=== PATIENT | male | born 1965 | race Caucasian/White ===

== ENCOUNTER 2017-09-26 11:15 | Day surgery (SDC) | payer OTHER ==
[~2017-09-26] VITALS: Ht 172.7 cm; Wt 82.1 kg
[~2017-09-26 11:15] MED LIST: ALPR2TAB PO; CARI350T PO; LORA-186 PO
[2017-09-26 11:43] VITALS: Ht 172.7 cm; Wt 82.1 kg
[2017-09-26] MEDS ORDERED: IBUP200C11 PO (11:48)
[2017-09-26 12:02] VITALS: BP 122/70; PULSE 74; RESP 16
[2017-09-26] MEDS ORDERED: LIDOCAINE 4% SOLUTION 50 ML BTL ONE (13:02)
[2017-09-26] MEDS ORDERED: LIDOCAINE 100 MG SYRINGE ONE (13:02)
[2017-09-26] MEDS ORDERED: FENTAnyl 50 MCG/ML VIAL ONE (13:21)
[2017-09-26] MEDS ORDERED: MIDAZOLAM 1 MG/ML 2 ML INJ ONE ×2 (13:21)
[2017-09-26 13:40] VITALS: BP 119/80; RESP 20
--- NOTE | 2017-09-26 13:59 | OPPN ---
Date/Time of Note Date/Time of Note DATE: 09/26/17 TIME: 13:56 Operative Report Preoperative Diagnosis Noncardiac chest pain Dysphagia Acid reflux symptoms Postoperative Diagnosis Esophagitis at 35 cm level 4 cm hiatal hernia Normal stomach normal duodenum Operation/Procedure Performed EGD with biopsy of distal esophagus and stomach Surgeon see signature line child life assistant None Anesthesia: moderate sedation (Versed 4 mg fentanyl 100 mcg posterior pharynx anesthetized with 4% Xylocaine total duration of moderate sedation 15 minutes) Estimated blood loss: none Transfusion Required none Specimen random gastric biopsy Distal esophagitis biopsy 35 cm Grafts/Implants none Complications none MARTHA MARKHAM MD Sep 26, 2017 13:59
--- NOTE | 2017-09-27 08:18 | GILP ---
DATE OF PROCEDURE: PREOPERATIVE DIAGNOSES: 1. Noncardiac chest pain. 2. Reflux symptoms. 3. Dysphagia. PROCEDURE DONE: Esophagogastroduodenoscopy and biopsy of the GE junction at 35 cm and random biopsy of the stomach. POSTOPERATIVE DIAGNOSES: 1. A 4 cm hiatus hernia. 2. Mild esophagitis grade II at 35 cm. DESCRIPTION OF PROCEDURE: The patient was put in left lateral decubitus after obtaining informed co nsent, was sedated with 4 mg of Versed and 100 mcg of fentanyl. Posterior pharynx anesthetized with 4% Xylocaine. Very carefully I advanced Olympus video upper endoscope into the esophagus, stomach and duodenum up to second part. Examination of the duodenum is normal. Duodenal bulb and first and second part normal. The stomach , including retroflexion, demonstrated only a hiatus hernia, but stomach, fundus, body and antrum no rmal, but random biopsy done to rule out H. pylori. Then GE junction at 35 cm where about 4 cm hiatus hernia was noted. Mild esophagitis grade II was n oted. This was photographed and biopsies were done. Then the scope was withdrawn. The patient had no complication. PLAN: Will be to wait for biopsy report. Continue PPI and ranitidine as before and he will follow up in my office in the next 2 to 3 weeks. Dictated By: MARTHA VILLASEÑOR Conf#: [id number] DID#: [id number] CC: Gurjit Arevalo;*End*
== END 2017-09-26 20:20 | disposition home or self-care (01) ==
LOC: GIL 11:15
PROVIDERS: ATTEND Internal Medicine
DX: K21.0 Gastro-esophageal reflux disease with esophagitis (principal); K44.9 Diaphragmatic hernia without obstruction or gangrene; E78.5 Hyperlipidemia, unspecified
CPT/HCPCS: 43239; 88305; 88312; 88313; J2001; J2250; J3010; Z7610

== ENCOUNTER 2017-11-14 12:27 | Day surgery (SDC) | END 2017-11-14 15:15 | disposition home or self-care (01) ==

== ENCOUNTER 2018-11-17 08:57 | Emergency (ER) | payer OTHER ==
[~2018-11-17] VITALS: Wt 81.4 kg
[~2018-11-17 08:57] MED LIST changes: -CARI350T PO; -LORA-186 PO; +OMEP20CA16 PO
[2018-11-17] MEDS ORDERED: SOD CHLORIDE 0.9% 1,000 ML IV STA (10:24)
[2018-11-17] MEDS ORDERED: FAMOTIDINE 20 MG TAB PO STA (10:24)
[2018-11-17] MEDS ORDERED: BELLADONNA/PHENOBARBITAL TAB PO STA (10:24)
[2018-11-17] MEDS ORDERED: LIDOCAINE/MYLANTA 40 ML BTL PO STA (10:24)
[2018-11-17] MEDS ORDERED: PANTOPRAZOLE 40 MG INJ IV ONE (10:30)
--- NOTE | 2018-11-17 10:34 | ERD ---
ER Documentation Chief Complaint Chief Complaint ABD PAIN, NAUSEA, VOMITING, ONSET 1 WEEK HPI 52-year-old man with a history of hiatal hernia using famotidine and proton pump inhibitor therapy for the last year presents with nausea, belching, indigestion, intermittent regurgitation, and epigastric discomfort times 1 week. He has a burning sensation in his throat and in the epigastrium, he denies blood per rectum or melena, no vomiting, no weight loss, no headache or blurry vision. ROS All systems reviewed and are negative except as per history of present illness. Medications Home Meds Active Scripts Esomeprazole Mag Trihydrate (Nexium) 20 Mg Capsule., 20 MG PO DAILY, #30 CAP Prov:ANAND POOLE MD 11/17/18 Reported Medications Omeprazole* (Omeprazole*) 20 Mg Capsule.dr, 20 MG PO DAILY, #30 CAP 11/14/17 Alprazolam* (Xanax*) 2 Mg Tablet, 2 MG PO DAILY, TAB 11/09/14 Allergies Allergies: Coded Allergies: No Known Allergy (Unverified , 08/05/14) PMhx/Soc Hiatal hernia, anxiety, severe erosive esophagitis and GERD diagnosed on upper endoscopy in late 2017 History of Surgery: Yes (BACK SX) Anesthesia Reaction: No Hx Neurological Disorder: No Hx Respiratory Disorders: No Hx Cardiac Disorders: No Hx Psychiatric Problems: Yes (ANXIETY) Hx Miscellaneous Medical Probl: Yes (CHRONIC LOWER BACK PAIN) Hx Alcohol Use: No Hx Substance Use: No Hx Tobacco Use: No Smoking Status: Never smoker FmHx Family History: No diabetes Physical Exam Vitals Vital Signs Date Temp Pulse Resp B/P (MAP) Pulse Ox O2 O2 Flow FiO2 Time Delivery Rate 11/17/18 98.2 70 17 111/80 98 Room Air 15:05 (90) 11/17/18 98.2 68 17 117/86 98 Room Air 12:30 (96) 11/17/18 81.4 64 17 132/83 97 09:05 (99) Physical Exam GENERAL: Well-developed, well-nourished, well-hydrated, anxious, afebrile HEENT: Moist mucous membranes, pink conjunctiva, no cervical spine tenderness or step-off deformities, no goiter, no jaundice or icterus, extraocular movements intact without pain. No submandibular induration, and no pharyngeal erythema NEURO: Alert and oriented 3, cranial nerves II through XII intact bilaterally, pupils equal round reactive to light, no focal deficits or facial asymmetry, sensation intact distally Strength 5/5 in upper and lower extremities bilaterally CARDIAC: Regular rate and rhythm, no murmurs rubs or gallops LUNGS: Clear bilaterally no wheezing crackles or stridor ABDOMEN: Soft nontender, no guarding, no rigidity, no rebound, no psoas sign no obturator sign. Normoactive bowel sounds SKIN: Warm and dry to touch, no abrasions, contusions, or hematomas, no lacerations, no ecchymosis, no target lesions, and without ulcers EXTREMITIES: No clubbing cyanosis or edema, calves are bilaterally symmetrical, no Homans sign, no popliteal cord sign. Distal pulses equal and bilateral PSYCH: Anxious appearing Result Diagram: 11/17/18 1038 11/17/18 1038 Results 24 hrs Laboratory Tests Test 11/17/18 10:38 White Blood Count 7.8 10^3/ul Red Blood Count 4.47 10^6/ul Hemoglobin 14.0 g/dl Hematocrit 39.9 % Mean Corpuscular Volume 89.3 fl Mean Corpuscular Hemoglobin 31.3 pg Mean Corpuscular Hemoglobin Concent 35.1 g/dl Red Cell Distribution Width 11.8 % Platelet Count 193 10^3/UL Mean Platelet Volume 9.4 fl Immature Granulocytes % 0.300 % Neutrophils % 60.5 % Lymphocytes % 29.8 % Monocytes % 6.2 % Eosinophils % 2.8 % Basophils % 0.4 % Nucleated Red Blood Cells % 0.0 /100WBC Immature Granulocytes # 0.020 10^3/ul Neutrophils # 4.7 10^3/ul Lymphocytes # 2.3 10^3/ul Monocytes # 0.5 10^3/ul Eosinophils # 0.2 10^3/ul Basophils # 0.0 10^3/ul Nucleated Red Blood Cells # 0.0 10^3/ul Prothrombin Time 12.0 Sec Prothrombin Time Ratio 0.9 INR International Normalized Ratio 0.88 Activated Partial Thromboplast Time 32.5 Sec Sodium Level 143 mmol/L Potassium Level 4.6 mmol/L Chloride Level 101 mmol/L Carbon Dioxide Level 29 mmol/L Anion Gap 13 Blood Urea Nitrogen 10 mg/dl Creatinine 0.95 mg/dl Est Glomerular Filtrat Rate mL/min > 60 mL/min Glucose Level 99 mg/dl Calcium Level 9.6 mg/dl Total Bilirubin 0.3 mg/dl Direct Bilirubin 0.00 mg/dl Indirect Bilirubin 0.3 mg/dl Aspartate Amino Transf (AST/SGOT) 50 IU/L Alanine Aminotransferase (ALT/SGPT) 52 IU/L Alkaline Phosphatase 60 IU/L Troponin I < 0.012 ng/ml Total Protein 7.9 g/dl Albumin 4.6 g/dl Globulin 3.30 g/dl Albumin/Globulin Ratio 1.39 Lipase 37 U/L Current Medications Medications Dose Sig/Radha Start Time Status Last (Trade) Ordered Route PRN Stop Time Admin Dose Reason Admin Sodium 1,000 ml @ Q1H STAT 11/17/18 DC 11/17/18 Chloride 1,000 mls/hr IV 10:24 10:54 11/17/18 11:23 Famotidine 20 mg ONCE STAT 11/17/18 DC 11/17/18 (Pepcid) PO 10:24 10:53 11/17/18 10:26 40 ml ONCE STAT 11/17/18 DC 11/17/18 Miscellaneous PO 10:24 10:53 Medication 11/17/18 10:26 (Gi Cocktail (2)) Belladonna/ 2 tab ONCE STAT 11/17/18 DC 11/17/18 Phenobarbital PO 10:24 10:53 () 11/17/18 10:26 40 mg ONCE ONCE 11/17/18 DC 11/17/18 Pantoprazole IV 10:30 10:53 (Protonix 11/17/18 10:31 Iv) Diatrizoate 120 ml ONCE ONCE 11/17/18 DC 11/17/18 Meglum/ PO 11:00 12:18 Diatrizoate 11/17/18 11:01 Sod (Gastrografin 66-10 Solution) Lorazepam 0.5 mg ONCE ONCE 11/17/18 DC 11/17/18 (Ativan) PO 13:30 13:36 11/17/18 13:31 Barium 450 ml STK-MED 11/17/18 DC Sulfate ONCE PO 13:13 (Readi-Cat 2 11/17/18 13:14 ( [employer] )) Procedures/MDM IV line was established patient was placed on monitoring coordinator rhythm strip revealed a sinus rhythm at about 70 bpm with upright P and T waves. Patient was afebrile EKG performed, read by me revealed a normal sinus rhythm at 65 bpm, normal axis, narrow QRS complex, no concerning ST elevations or depressions noted. One AP view of the chest performed, read by me reveals no acute infiltrates, normal mediastinum, sharp costophrenic and cardiac borders, no air under the diaphragm. Otherwise unremarkable chest x-ray. I administered 1 L normal saline IV, Zofran 4 mg IV, GI cocktail 40 cc p.o., Pro tonix 40 mg IV I spoke to the patient's GI physician Dr. Rios who recommended follow-up with surgeon as scheduled, this physician recently performed upper endoscopy on the patient and he has no further intervention to provide. He agreed to follow- up with the patient as an outpatient I spoke to the patient's surgeon Dr. Ng who recommended CT of the chest, abdomen, pelvis with oral contrast and if it is unremarkable to follow-up in his office as scheduled I ordered CT scan of the chest, abdomen and pelvis with oral contrast. Results were unremarkable please refer to radiologist dictation for full report. CBC and electrolytes are normal, liver function tests were normal, troponin was negative Patient's vital signs are normal, he remains comfortable, and workup was fairly unrevealing. He will follow-up as scheduled with his surgeon as an outpatient Differential diagnoses considered, included but not limited to acute coronary syndrome, pulmonary embolism, aortic dissection, abdominal aortic aneurysm, sepsis, stroke, meningitis, encephalitis, pneumonia, appendicitis, cholecys titis, bowel obstruction, pyelonephritis, nephrolithiasis, cystitis, as well as metabolic, hematologic, and electrolyte abnormalities. As well as abscess, cellulitis, fractures, and dislocations. Patient feels much better at this time, and vital signs are normal, symptoms have improved. I did give strict instructions to return to the ED if symptoms continue or worsen, patient will otherwise follow-up with primary care physician. Patient understood instructions and agreed to plan. Disclaimer: Inadvertent spelling and grammatical errors are likely due to EHR/dictation software use and do not reflect on the overall quality of patient care. Also, please note that the electronic time recorded on this note does not necessarily reflect the actual time of the patient encounter. Departure Diagnosis: Primary Impression: GERD (gastroesophageal reflux disease) Esophagitis presence: with esophagitis Qualified Codes: K21.0 - Gastro- esophageal reflux disease with esophagitis Additional Impression: Hiatal hernia Condition: Good ANAND POOLE MD Nov 17, 2018 10:34
[2018-11-17] MEDS ORDERED: DIATR MEGLU/DIATRIZOATE SODIUM 120 ML BTL PO ONE (11:00)
[2018-11-17] MEDS ORDERED: ESOM20CA PO (13:07)
[2018-11-17] MEDS ORDERED: BARIUM SULF 2% 450 ML BTL (BERRY SMOOTHIE) PO ONE (13:13)
[2018-11-17] MEDS ORDERED: LORAZEPAM 0.5 MG TAB PO ONE (13:30)
[2018-11-17 15:05] VITALS: BP 111/80; PULSE 70; RESP 17
== END 2018-11-17 15:05 | disposition home or self-care (01) ==
LOC: E/R 08:57
DX: K21.0 Gastro-esophageal reflux disease with esophagitis (principal); K44.9 Diaphragmatic hernia without obstruction or gangrene
CPT/HCPCS: 36415; 71045; 71250; 74176; 80053; 83690; 84484; 85025; 85610; 85730; 93005; 96374; C9113; J7030; Z7502; Z7610